=== PATIENT | female | born 1990 | race Caucasian/White ===

== ENCOUNTER 2023-02-18 12:34 | Emergency (ER) | payer OTHER, SELFPAY ==
[2023-02-18] VITALS (20 sets, daily range): BP systolic 98–130; BP diastolic 62–90; PULSE 79–120; RESP 14–22; TEMP 36.6; O2SAT 97–100
[2023-02-18 12:55] LABS: Appearance Urine Cloudy (Clear); Bacteria Urine 1+ /hpf; Bilirubin Urine Negative (Negative); Blood Urine Negative (Negative); Color Urine Dark Yellow (Yellow); Glucose Urine UA Negative (Negative); Ketones Urine 2+ mg/dL (Negative); Leukocyte Esterase Ur 1+ LEU/UL (Negative); Nitrate Urine Negative (Negative); Protein Urine 2+ mg/dL (Negative); Specific Grav Ur 1.023 (1.001-1.035); Squamous Epithelial Cell Urine Few /hpf (Few)
[2023-02-18 13:00] LABS: Basophils Percent Auto 0.2 % (0.2-1.2); Eosinophils Absolute Auto 0.1 K/mm3 (0-0.3); Eosinophils Percent Auto 0.7 % (0-4.4); Hematocrit 36.1 % (37.0-47.0); Hemoglobin 11.5 g/dL (12.0-15.0); Immature Granulocyte Absolute 0.05 K/mm3 (0.00-0.031); Immature Granulocyte Percent A 0.6 % (0-0.5); Lymphocytes Absolute Auto 1.03 K/mm3 (0.9-3.2); Lymphocytes Percent Auto 12.4 % (18.3-44.2); Mean Corpuscular HGB Conc 31.9 g/dl (32-36); Mean Corpuscular Hemoglobin 26.4 pg (26-34); Mean Platelet Volume 9.6 fl (7.4-10.4); Monocytes Absolute Auto 0.5 K/mm3 (0.1-0.6); Monocytes Percent Auto 5.9 % (2.6-8.5); Neutrophils Absolute Auto 6.7 K/mm3 (1.3-6.7); Neutrophils Percent Auto 80.2 % (45.5-73.1); Platelet Count Result 211 k/mm3 (150-375); Red Blood Count 4.35 M/mm3 (4.2-5.4); White Blood Count 8.3 K/mm3 (4.5-10.0)
[2023-02-18 13:05] LABS: Add Urine Microscopic? YES
[2023-02-18 13:09] LABS: Alanine Aminotransferase 15 U/L (6-35); Albumin Level 3.8 g/dL (3.5-5.1); Alkaline Phosphatase 55 U/L (38-126); Anion Gap 7 mmol/L (8-16); Aspartate Amino Transferase 20 U/L (14-36); Bilirubin,Total 0.4 mg/dL (0.2-1.3); Blood Urea Nitrogen 6 mg/dL (7-17); Calcium 8.6 mg/dL (8.4-10.2); Carbon Dioxide 27 mmol/L (22-30); Chloride 101 mmol/L (98-107); Estimated CRCL calculation 158 ml/min; Estimated Glomerular Filt Rate > 60; Glucose 109 mg/dL (65-110); Potassium 3.3 mmol/L (3.4-5.0); Sodium 135 mmol/L (137-145)
--- NOTE | 2023-02-18 13:48 | ED.SYNCOPE ---
HPI - Syncope General Chief Complaint: Dizziness Stated Complaint: dizzy Time Seen by Provider: 02/18/23 12:58 History of Present Illness HPI narrative: Patient is a 32-year-old female at approximately 15 weeks gestation presenting with syncope. Patient states that she was at work when she became lightheaded, diaphoretic, had tunnel vision. States that a customer had to help her sit down. States that when she sat down, she started to feel better. Denies chest pain, palpitations, shortness of breath. Denies headaches, fevers, numbness or weakness, abdominal pain, vaginal bleeding, leg swelling, dysuria. Related Data Allergies Allergy/AdvReac Type Severity Reaction Status Date / Time No Known Allergies Allergy Verified 02/18/23 14:08 Review of Systems Review of Systems: All systems reviewed & are unremarkable except as noted in HPI and below Exam Narrative: GENERAL: Well-appearing, well-nourished, and in no acute distress. HEAD: Normocephalic, atraumatic. EYES: PERRLA and EOMI. ENT: Nares clear, no rhinorrhea or epistaxis. Mucous membranes moist. NECK: Supple. CHEST: Clear to auscultation. No respiratory distress. HEART: Regular rate and rhythm. No murmur heard. Normal peripheral pulses. ABDOMEN: Soft, nontender, appropriately gravid abdomen EXTREMITIES: Normal range of motion. No edema. SKIN: Warm, dry, no rash. NEURO: No focal deficits. Alert and oriented x3. PSYCH: Normal mood and affect. Course Vital Signs Vital signs: Vital Signs Temperature 97.8 F 02/18/23 12:32 Pulse Rate 91 02/18/23 12:32 Respiratory Rate 16 02/18/23 12:32 Blood Pressure 130/90 02/18/23 12:32 Pulse Oximetry 100 02/18/23 12:32 Oxygen Delivery Room Air 02/18/23 12:32 Temperature 97.8 F 02/18/23 12:32 Pulse Rate 93 02/18/23 16:38 Respiratory Rate 20 02/18/23 16:38 Blood Pressure 101/71 02/18/23 16:12 Pulse Oximetry 100 02/18/23 16:38 Oxygen Delivery Room Air 02/18/23 12:32 MDM - Syncope MDM Narrative Medical decision making narrative: Patient is a 32-year-old female presenting with an episode of syncope in the setting of . Orthostatic vital signs are positive with her heart rate jumping to the 120s with standing. EKG per my interpretation shows sinus rhythm with sinus arrhythmia, normal axis and intervals, no ST elevations or depressions. Work-up with mild hypokalemia and UTI. Patient was given oral potassium. Covered with Macrobid. Fluids are ongoing. On reevaluation, the patient states that she feels well. She has not had any recurrence of her symptoms. Repeat orthostatics have improved. Discussed the reassuring work-up, will send in prescription for Macrobid. Advised that she try to increase her fluid intake. Recommended close OB follow-up. Appropriate return precautions given. Patient voiced understanding and is agreeable with plan. Discharged in stable condition. Differential Diagnosis Differential diagnosis: Likely syncope due to orthostatic hypotension, vasovagal syncope and dehydration Medical Records Attestation: I reviewed the patient's medical records. Lab Data Attestation: I reviewed the patient's lab results. 02/18/23 12:53 02/18/23 12:53 Labs: Lab Results 02/18/23 02/18/23 Range/Units 12:42 12:53 WBC 8.3 (4.5-10.0) K/mm3 RBC 4.35 (4.2-5.4) M/mm3 Hgb 11.5 L (12.0-15.0) g/dL Hct 36.1 L (37.0-47.0) % MCV 83.0 (80-100) fl MCH 26.4 (26-34) pg MCHC 31.9 L (32-36) g/dl RDW 15.0 H (11.5-14.5) % Plt Count 211 (150-375) k/mm3 MPV 9.6 (7.4-10.4) fl Immature Gran % (Auto) 0.6 H (0-0.5) % Neut % (Auto) 80.2 H (45.5-73.1) % Lymph % (Auto) 12.4 L (18.3-44.2) % [place] % (Auto) 5.9 (2.6-8.5) % Eos % (Auto) 0.7 (0-4.4) % Baso % (Auto) 0.2 (0.2-1.2) % Lymph # (Auto) 1.03 (0.9-3.2) K/mm3 [place] # (Auto) 0.5 (0.1-0.6) K/mm3 Eos # (Auto) 0.1 (0-0.3) K/mm3 B
[2023-02-18] MEDS: SODIUM CHLORIDE 0.9% IV 1,000 ML 999 ML IV CONT ×2 (13:50)
--- NOTE | 2023-02-18 13:52 | ECG_ITS ---
Measurements Intervals [place] Rate: 76 P: 49 ND: 126 QRS: 46 QRSD: 91 T: -1 QT: 361 QTc: 406 Interpretive Statements SINUS RHYTHM WITH MARKED SINUS ARRHYTHMIA BORDERLINE ST-T WAVE ABNORMALITY- INFERIOR LEADS BORDERLINE ECG NO PREVIOUS ECG AVAILABLE FOR COMPARISON Electronically Signed On 02-18-2023 14:21:17 CDT by Angel Quiñonez D.O.
[2023-02-18] MEDS: POTASSIUM CHLORIDE 20 MEQ TABLET 40 MEQ PO (14:10)
[2023-02-18] MEDS: NITROFURANTOIN MONOHYD MACROCR 100 MG CAP PO (14:10)
== END 2023-02-18 16:55 | disposition home or self-care (01) ==
PROVIDERS: Emergency Medicine; Emergency Provider Emergency Medicine
DX: O26.52 Maternal hypotension syndrome, second trimester (principal); O23.42 Unspecified infection of urinary tract in pregnancy, second trimester; N39.0 Urinary tract infection, site not specified; O26.892 Other specified pregnancy related conditions, second trimester; E87.6 Hypokalemia; Z3A.15 15 weeks gestation of pregnancy
CPT/HCPCS: 36415; 80053; 81001; 85025; 87086; 93005; 96360; 99284; A9270; J7030

== ENCOUNTER 2023-05-04 18:43 | Emergency (ER) | payer OTHER, SELFPAY ==
[2023-05-04 18:45] VITALS: BP 118/69; PULSE 99; RESP 16; TEMP 36.4; O2SAT 100
--- NOTE | 2023-05-04 18:48 | ECG_ITS ---
Measurements Intervals [place] Rate: 88 P: 48 NE: 129 QRS: 34 QRSD: 86 T: 9 QT: 328 QTc: 398 Interpretive Statements SINUS RHYTHM WITH SINUS ARRHYTHMIA BORDERLINE ST-T WAVE ABNORMALITY- ANT/INF LEADS BASELINE ARTIFACT- I, III, AVL BORDERLINE ECG COMPARED TO ECG 02/18/2023 14:19:39 NO SIGNIFICANT CHANGES Electronically Signed On 05-04-2023 21:27:03 CDT by Angel Quiñonez D.O.
[2023-05-04 21:54] VITALS: BP 126/86; PULSE 80; RESP 15; O2SAT 100
[2023-05-04 22:24] LABS: Basophils Percent Auto 0.3 % (0.2-1.2); Eosinophils Absolute Auto 0.1 K/mm3 (0-0.3); Eosinophils Percent Auto 0.7 % (0-4.4); Hematocrit 32.1 % (37.0-47.0); Immature Granulocyte Absolute 0.07 K/mm3 (0.00-0.031); Immature Granulocyte Percent A 0.6 % (0-0.5); Lymphocytes Absolute Auto 1.64 K/mm3 (0.9-3.2); Mean Corpuscular HGB Conc 31.2 g/dl (32-36); Mean Corpuscular Volume 83.4 fl (80-100); Mean Platelet Volume 9.4 fl (7.4-10.4); Monocytes Absolute Auto 0.7 K/mm3 (0.1-0.6); Monocytes Percent Auto 6.3 % (2.6-8.5); Neutrophils Absolute Auto 8.4 K/mm3 (1.3-6.7); Neutrophils Percent Auto 77.1 % (45.5-73.1); Platelet Count Result 229 k/mm3 (150-375); Red Blood Count 3.85 M/mm3 (4.2-5.4); Red Cell Distribution Width 15.1 % (11.5-14.5); White Blood Count 10.9 K/mm3 (4.5-10.0)
[2023-05-04] MEDS: MECLIZINE HCL 25 MG TABLET PO (22:31)
[2023-05-04 22:41] LABS: Alanine Aminotransferase 12 U/L (6-35); Albumin Level 3.5 g/dL (3.5-5.1); Alkaline Phosphatase 88 U/L (38-126); Anion Gap 4 mmol/L (8-16); Aspartate Amino Transferase 18 U/L (14-36); Bilirubin,Total 0.4 mg/dL (0.2-1.3); Blood Urea Nitrogen 9 mg/dL (7-17); Calcium 8.8 mg/dL (8.4-10.2); Carbon Dioxide 26 mmol/L (22-30); Chloride 102 mmol/L (98-107); Estimated CRCL calculation 162 ml/min; Estimated Glomerular Filt Rate > 60; Glucose 88 mg/dL (65-110); Potassium 3.6 mmol/L (3.4-5.0); Sodium 132 mmol/L (137-145)
[2023-05-04 22:43] LABS: Appearance Urine Cloudy (Clear); Bacteria Urine 4+ /hpf; Bilirubin Urine Negative (Negative); Blood Urine Negative (Negative); Color Urine Yellow (Yellow); Glucose Urine UA Negative (Negative); Ketones Urine 1+ mg/dL (Negative); Leukocyte Esterase Ur 1+ LEU/UL (Negative); Nitrate Urine Negative (Negative); Non Pathogenic Casts 0-2; Protein Urine Trace mg/dL (Negative); RBC Urine 0-2 /hpf (0-2); Specific Grav Ur 1.028 (1.001-1.035); Squamous Epithelial Cell Urine Many /hpf (Few); pH Urine 5.5 (5.0-9.0)
--- NOTE | 2023-05-04 22:49 | ED.DIZZY ---
HPI - Dizziness General Chief Complaint: Dizziness Stated Complaint: DIZZINESS 25+ WEEKS PREG Time Seen by Provider: 05/04/23 21:13 Source: patient Mode of arrival: ambulatory Limitations: no limitations History of Present Illness HPI Narrative: This is a 32-year-old female approximately 25 weeks who presents to the ED with chief complaint of near syncope intermittently for the past week. Patient states that this occurs when she is at work. She specifically notes that she will stand up and walk around and started to feel a little lightheaded. She states occasionally she feels dizzy but feels the symptoms are more related to near syncope. Reports that her coworkers have to help her sit down. Denies any fall, true LOC or head injury in the past week. Denies headache, fever, numbness or weakness, abdominal pain, vaginal bleeding, leg swelling urinary problems. States her OB doctor is in [place]. Related Data Allergies Allergy/AdvReac Type Severity Reaction Status Date / Time No Known Allergies Allergy Verified 02/18/23 14:08 Exam Narrative: GENERAL: Well-appearing, well-nourished, and in no acute distress. HEAD: Normocephalic, atraumatic. EYES: PERRLA and EOMI. ENT: Nares clear, no rhinorrhea or epistaxis. Mucous membranes moist. Oropharynx without tonsillar hypertrophy exudate or other lesions. NECK: Supple. No adenopathy or masses. CHEST: No respiratory distress. Clear to auscultation. No wheezes rales or rhonchi HEART: Regular rate and rhythm. No murmur heard. Normal peripheral pulses. ABDOMEN: Soft, nontender, nondistended, normal active bowel sounds. MSK: Normal range of motion. No edema. SKIN: Warm, dry, no rash. NEURO: Alert and oriented x3. No focal deficits. PSYCH: Normal mood and affect. Course Vital Signs Vital signs: Vital Signs Temperature 97.6 F 05/04/23 18:45 Pulse Rate 99 05/04/23 18:45 Respiratory Rate 16 05/04/23 18:45 Blood Pressure 118/69 05/04/23 18:45 Pulse Oximetry 100 05/04/23 18:45 Oxygen Delivery Room Air 05/04/23 18:45 Temperature 97.6 F 05/04/23 18:45 Pulse Rate 82 05/04/23 23:29 Respiratory Rate 16 05/04/23 23:29 Blood Pressure 124/80 05/04/23 23:29 Pulse Oximetry 100 05/04/23 23:29 Oxygen Delivery Room Air 05/04/23 18:45 MDM - Dizziness MDM Narrative Medical decision making narrative: This is a 32-year-old approximately 25-week female who presents to the ED with chief complaint of near syncope for the past week. Vitals are normal. Exam is benign. ECG shows sinus arrhythmia unchanged from ECG 3 months ago. Lab work reveals anemia with hemoglobin of 10, this is a little lower than her previous measure 3 months ago. Discussed this with the patient and she tells me that she has had anemia with hemoglobin at this level multiple times in the past. Her sodium is a little low but do not feel it is contributing to her symptomatology. UTI shows trace ketones, 1+ leuks, white blood cells, bacteria. It appears contaminated, culture pending. Will prescribe Macrobid for coverage of this. Again this is probably not contributing to symptoms of near syncope. However there is some evidence of dehydration. Symptoms consistent with vasovagal response versus orthostatic hypotension versus sinus arrhythmia versus UTI. Patient will be discharged stable condition. she did well with walking test as she did not become dizzy or lightheaded in the department. She is understanding and agreeable with plan for discharge and follow-up with her specialist. Return precautions given and supportive measures discussed Lab Data 05/04/23 22:19 05/04/23 22:19 Labs: Lab Results 05/04/23 05/04/23 Range/Units 22:19 22:29 WBC 10.9 H (4.5-10.0) K/mm3 RBC 3.85 L (4.2-5.4) M/mm3 Hgb 10.0 L (12.0-15.0) g/dL Hct 32.1 L (37.0-47.0) % MCV 83.4 (80-100) fl MCH 26.0 (26-34) pg MCHC 31.2 L
[2023-05-04 22:54] LABS: Add Urine Microscopic? YES
[2023-05-04 23:29] VITALS: BP 124/80; PULSE 82; RESP 16; O2SAT 100
== END 2023-05-04 23:30 | disposition home or self-care (01) ==
PROVIDERS: Emergency Provider Physician Assistant
DX: O23.42 Unspecified infection of urinary tract in pregnancy, second trimester (principal); N39.0 Urinary tract infection, site not specified; O26.892 Other specified pregnancy related conditions, second trimester; R55 Syncope and collapse; Z3A.25 25 weeks gestation of pregnancy; R94.31 Abnormal electrocardiogram [ECG] [EKG]
CPT/HCPCS: 36415; 80053; 81001; 85025; 87086; 93005; 99283; A9270

== ENCOUNTER 2023-06-05 12:28 | Observation (INO) | payer OTHER, SELFPAY ==
[2023-06-05 12:53] VITALS: BP 110/70; PULSE 85
[2023-06-05 13:00] VITALS: BP 113/77; PULSE 89
[2023-06-05 13:15] VITALS: BP 117/72; PULSE 87
[2023-06-05 13:30] VITALS: BP 112/70; PULSE 79
[2023-06-05 13:43] VITALS: BP 112/70; PULSE 79
[2023-06-05 13:46] VITALS: BMI 31.1
--- NOTE | 2023-06-05 13:47 | OBADM ---
This patient, Tanya Robles, admitted to the OB room OB Post [facility] for observation. Patient/family oriented to hospital policies and general routines including ID bracelet, bed and alarms, visiting hours, pain management, procedures, bathroom and other care routines, personal items, smoking policy, room service/diet, and visiting hours. Patient/Family are encouraged to report perceived risks to care and to ask questions if they do not understand what they are told or what they should do.
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
== END 2023-06-05 13:51 | disposition home or self-care (01) ==
PROVIDERS: Admitting Provider Obstetrics & Gynecology; Visit Provider Obstetrics & Gynecology
DX: Z04.1 Encounter for examination and observation following transport accident (principal)
CPT/HCPCS: 59025; G0378; G0379